=== PATIENT | male | born 1990 | race Hispanic/Latino ===

== ENCOUNTER 2020-05-17 22:03 | Emergency (ER) | payer SELFPAY ==
[~2020-05-17] VITALS: Ht 177.8 cm; Wt 79.4 kg
[2020-05-17] MEDS ORDERED: KETOROLAC TROMETHAMINE 60 MG/2 ML VIAL IM ONE (23:00)
[2020-05-17] MEDS ORDERED: ORPHENADRINE CITRATE 30 MG/ML VIAL IM ONE (23:00)
[2020-05-17] MEDS ORDERED: KETOROLAC TROMETHAMINE 60 MG/2 ML VIAL ONE (23:13)
[2020-05-17] MEDS ORDERED: ORPHENADRINE CITRATE 30 MG/ML VIAL ONE (23:13)
== END 2020-05-17 23:50 | disposition home or self-care (01) ==
LOC: ER 22:11
DX: S33.5XXA Sprain of ligaments of lumbar spine, initial encounter (principal); X50.0XXA Overexertion from strenuous movement or load, initial encounter
CPT/HCPCS: 72100; 99283; J1885; J2360